=== PATIENT | female | born 1965 | race Caucasian/White ===

== ENCOUNTER → 2021-07-16 | Outpatient (CLI) | payer BC ==
[~2021-07-16] MED LIST: BAMLANIVIMAB (EUA) 700 MG, ETESEVIMAB (EUA) 1,400 MG in SODIUM CHLORIDE 0.9% 50 ML IVPB NR; SODIUM CHLORIDE 0.9% 50 ML IVPB ONE; SODIUM CHLORIDE 0.9% 500 ML 500 ML in EMPTY BAG 1 BAG IV PRN
[2021-07-16 14:14] VITALS: TEMP 98.2
[2021-07-16 14:37] VITALS: BP 115/74; PULSE 78; RESP 20
== END ==
LOC: PROCWHC3 13:08
PROVIDERS: ATTEND Family Medicine
DX: U07.1 COVID-19 (principal); Z88.1 Allergy status to other antibiotic agents; Z88.2 Allergy status to sulfonamides
CPT/HCPCS: 96360; J3490; M0245

== ENCOUNTER 2021-07-17 00:06 | Inpatient (IN) | payer BC ==
[2021-07-17] MEDS ORDERED: ACETAMINOPHEN TAB 500 MG TAB PO PRN (00:24)
[2021-07-17] MEDS ORDERED: ACETAMINOPHEN TAB 500 MG TAB PO STA (00:24)
[2021-07-17] MEDS ORDERED: IBUPROFEN 600 MG TAB PO STA (00:30)
--- NOTE | 2021-07-17 00:32 | ED ---
General Adult HPI - General Chief complaint: Upper Respiratory Infection Stated complaint: FELIX, COVID+ Time Seen by Provider: 07/17/21 00:16 Source: patient, RN notes reviewed Mode of arrival: ambulatory Limitations: no limitations - History of Present Illness Initial comments: 56-year-old female without any significant past medical history presents to the emergency room for chief complaint of shortness of breath. Patient reports that she was tested positive for COVID-19 one week ago on last . States her symptoms started around that day as well. Patient states that she has progressively gotten worse. Today she got the antibodies. She was not vaccinated. Patient states this evening she could not get her oxygen into the 90s so decided to come in. Has not taken Motrin or Tylenol yet.Patient has no other complaints at this time including chest pain, abdominal pain, nausea or vomiting, headache, or visual changes. - Related Data Allergies Allergy/AdvReac Type Severity Reaction Status Date / Time erythromycin base Allergy Unknown Verified 07/17/21 00:12 Sulfa (Sulfonamide Allergy Unknown Verified 07/17/21 00:12 Antibiotics) Review of Systems ROS Statement: Those systems with pertinent positive or pertinent negative responses have been documented in the HPI. ROS Other: All systems not noted in ROS Statement are negative. Past Medical History Past Medical History: No Reported History History of Any Multi-Drug Resistant Organisms: None Reported Past Surgical History: No Surgical Hx Reported Past Psychological History: No Psychological Hx Reported Smoking Status: Never smoker Past Alcohol Use History: Occasional Past Drug Use History: None Reported General Exam Limitations: no limitations General appearance: alert, in no apparent distress Head exam: Present: atraumatic Eye exam: Present: normal appearance, PERRL, EOMI. Absent: scleral icterus, conjunctival injection ENT exam: Present: normal exam, mucous membranes moist Neck exam: Present: normal inspection, full ROM. Absent: tenderness Respiratory exam: Present: normal lung sounds bilaterally. Absent: respiratory distress, wheezes Cardiovascular Exam: Present: regular rate, normal rhythm, normal heart sounds GI/Abdominal exam: Present: soft, normal bowel sounds. Absent: distended, tenderness Neurological exam: Present: alert Course Vital Signs 07/17/21 00:09 Temperature 103 F H Pulse Rate 91 Respiratory 30 H Rate Blood Pressure 147/77 O2 Sat by Pulse 87 L Oximetry EKG Findings - EKG Comments: EKG Findings:: Normal sinus rhythm, ventricular rate 86, W[place] interval 146, QTC 440 Medical Decision Making - Medical Decision Making Patient is febrile with a temperature of 103. Has not taken Motrin and Tylenol. pt given motrin and tylenol. 87% on room air. Started on 4 L nasal cannula wh ich is keeping her around 92-93%. CBC is unremarkable. CMP does show I'll hyponatremia, started on maintenance fluids. Minimal transaminitis noted. D- dimer is normal. Chest x-ray shows pneumonia. Patient did receive antibodies today. Patient will be admitted with pulmonology consultation. [facility] from [facility] did accept the admission. - Lab Data Result diagrams: 07/17/21 00:41 07/17/21 00:41 Lab Results 07/17/21 07/17/21 07/17/21 Range/Units 00:41 00:41 00:41 WBC 7.6 (3.8-10.6) k/uL RBC 3.68 L (3.80-5.40) m/uL Hgb 11.4 (11.4-16.0) gm/dL Hct 33.2 L (34.0-46.0) % MCV 90.5 (80.0-100.0) fL MCH 30.9 (25.0-35.0) pg MCHC 34.2 (31.0-37.0) g/dL RDW 11.5 (11.5-15.5) % Plt Count 204 (150-450) k/uL MPV 7.9 Neutrophils % 81 % Lymphocytes % 12 % Monocytes % 6 % Eosinophils % 0 % Basophils % 0 % Neutrophils # 6.1 (1.3-7.7) k/uL Lymphocytes # 0.9 L (1.0-4.8) k/uL Monocytes # 0.4 (0-1.0) k/uL Eosinophils # 0.0 (0-0.7) k/uL Basophils # 0.0 (0-0.2) k/uL PT 10.4 (9.0-12.0) sec INR 1.0 (<1.2) APTT 23.1 (22.0-30.0) sec D-Dimer 0.29 (<0.60) mg/L FEU Sodium 129 L (137-145) mmol/L Potassium 3.9 (3.5-5.1) mmol/L Chloride 96 L (98-107) mmol/L Carbon Dioxide 23 (22-30) mmol/L Anion Gap 10 mmol/L BUN 11 (7-17) mg/dL Creatinine 0.52 (0.52-1.04) mg/dL Est GFR (CKD-EPI)AfAm >90 (>60 ml/min/1.73 sqM) Est GFR (CKD-EPI)NonAf >90 (>60 ml/min/1.73 sqM) Glucose 142 H (74-99) mg/dL Plasma Lactic Acid Gustavo (0.7-2.0) mmol/L Calcium 7.6 L (8.4-10.2) mg/dL Magnesium 2.0 (1.6-2.3) mg/dL Total Bilirubin 0.4 (0.2-1.3) mg/dL AST 56 H (14-36) U/L ALT 40 H (4-34) U/L Alkaline Phosphatase 74 (38-126) U/L Lactate Dehydrogenase 1003 H (313-618) U/L C-Reactive Protein 7.8 H (<1.0) mg/dL Total Protein 6.5 (6.3-8.2) g/dL Albumin 3.6 (3.5-5.0) g/dL Coronavirus (PCR) (Not Detectd) 07/17/21 07/17/21 Range/Units 00:41 00:41 WBC (3.8-10.6) k/uL RBC (3.80-5.40) m/uL Hgb (11.4-16.0) gm/dL Hct (34.0-46.0) % MCV (80.0-100.0) fL MCH (25.0-35.0) pg MCHC (31.0-37.0) g/dL RDW (11.5-15.5) % Plt Count (150-450) k/uL MPV Neutrophils % % Lymphocytes % % Monocytes % % Eosinophils % % Basophils % % Neutrophils # (1.3-7.7) k/uL Lymphocytes # (1.0-4.8) k/uL Monocytes # (0-1.0) k/uL Eosinophils # (0-0.7) k/uL Basophils # (0-0.2) k/uL PT (9.0-12.0) sec INR (<1.2) APTT (22.0-30.0) sec D-Dimer (<0.60) mg/L FEU Sodium (137-145) mmol/L Potassium (3.5-5.1) mmol/L Chloride (98-107) mmol/L Carbon Dioxide (22-30) mmol/L Anion Gap mmol/L BUN (7-17) mg/dL Creatinine (0.52-1.04) mg/dL Est GFR (CKD-EPI)AfAm (>60 ml/min/1.73 sqM) Est GFR (CKD-EPI)NonAf (>60 ml/min/1.73 sqM) Glucose (74-99) mg/dL Plasma Lactic Acid Gustavo 0.9 (0.7-2.0) mmol/L Calcium (8.4-10.2) mg/dL Magnesium (1.6-2.3) mg/dL Total Bilirubin (0.2-1.3) mg/dL AST (14-36) U/L ALT (4-34) U/L Alkaline Phosphatase (38-126) U/L Lactate Dehydrogenase (313-618) U/L C-Reactive Protein (<1.0) mg/dL Total Protein (6.3-8.2) g/dL Albumin (3.5-5.0) g/dL Coronavirus (PCR) Detected A (Not Detectd) Disposition Clinical Impression: COVID-19, Acute respiratory failure with hypoxia, Pneumonia due to COVID-19 virus, Transaminitis, Hyponatremia Disposition: ADMITTED IP TO THIS [facility] Condition: Serious Is patient prescribed a controlled substance at d/c from ED?: No Referrals: Nonstaff,Physician [REFERRING] - 1-2 days Time of Disposition: 01:49
--- NOTE | 2021-07-17 00:44 | XR ---
EXAMINATION TYPE: XR chest 1V portable DATE OF EXAM: 07/17/2021 COMPARISON: NONE HISTORY: Covid pneumonia TECHNIQUE: Single view FINDINGS: There is some patchy infiltrate in the lower lobes bilaterally. This appears worse on the l eft side. Heart size is normal. Mediastinum is normal. There are no hilar masses. IMPRESSION: Bilateral pneumonia that is worse on the left side. Normal heart.
[2021-07-17 01:09] LABS: Basophils % (A) 0 %; Eosinophils % (A) 0 %; HCT 33.2 % (34.0-46.0); HGB 11.4 gm/dL (11.4-16.0); Lymphocytes # (A) 0.9 k/uL (1.0-4.8); Lymphocytes % (A) 12 %; MCH 30.9 pg (25.0-35.0); MCHC 34.2 g/dL (31.0-37.0); MCV 90.5 fL (80.0-100.0); Mean Platelet Volume 7.9; Monocytes # (A) 0.4 k/uL (0-1.0); Monocytes % (A) 6 %; Neutrophils # (A) 6.1 k/uL (1.3-7.7); Neutrophils % (A) 81 %; Platelet Count 204 k/uL (150-450); RBC 3.68 m/uL (3.80-5.40); RDW 11.5 % (11.5-15.5); WBC 7.6 k/uL (3.8-10.6)
[2021-07-17 01:24] LABS: Partial Thromboplastin Time 23.1 sec (22.0-30.0); Prothrombin Time 10.4 sec (9.0-12.0)
[2021-07-17 01:26] LABS: ALT 40 U/L (4-34); AST 56 U/L (14-36); African American GFR (CKD) >90 (>60 ml/min/1.73 sqM); Albumin 3.6 g/dL (3.5-5.0); Alkaline Phosphatase 74 U/L (38-126); Anion Gap 10 mmol/L; Blood Urea Nitrogen 11 mg/dL (7-17); C Reactive Protein 7.8 mg/dL (<1.0); Calcium 7.6 mg/dL (8.4-10.2); Carbon Dioxide 23 mmol/L (22-30); Chloride 96 mmol/L (98-107); Glucose 142 mg/dL (74-99); LDH 1003 U/L (313-618); Non-African American GFR(CKD) >90 (>60 ml/min/1.73 sqM); Potassium 3.9 mmol/L (3.5-5.1); Sodium 129 mmol/L (137-145); Total Bilirubin 0.4 mg/dL (0.2-1.3); Total Protein 6.5 g/dL (6.3-8.2)
[2021-07-17] MEDS ORDERED: DEXAMETHASONE SOD PHOSPHATE 10 MG/ML 1 ML VIAL IVP STA (01:50)
[2021-07-17] MEDS ORDERED: NALOXONE 0.4 MG/ML 1 ML VIAL IV PRN (01:50)
[2021-07-17] MEDS: SODIUM CHLORIDE 0.9% 1,000 ML IV SCH ×2 (03:51→18:39)
--- NOTE | 2021-07-17 06:41 | P.CNPUL ---
History of Present Illness Consult date: 07/17/21 Requesting physician: Melba Arenas Reason for consult: dyspnea, cough, hypoxemia, pneumonia, abnormal CXR/CT Chief complaint: Shortness of breath, cough, fever. History of present illness: Pulmonary consult dated 07/17/2021. 56-year-old female who presents to the emergency department on July 17, complaining of cough, shortness of breath, and fever. The patient apparently tested positive on July 09 for coronavirus. She's been symptomatically since that time and may be a bit before that. Her symptoms included primarily fever, chills, cough, shortness of breath, general weakness, and myalgias. She is on vaccinated. The patient's currently in the emergency room, room 15. She's on 4 L nasal cannula. She's not receiving any IV fluids. She apparently is no significant past medical history. She does not smoke cigarettes. Apparently her family doctor provided her with a Medrol Dosepak and a Z-Brian. That did not help. Chest x-ray shows diffuse bilateral infiltrates. White count 7.6, hemoglobin 11.4, hematocrit 33.2, platelet count 204,000. D-dimer was normal at 0.29. Sodium 129, potassium 3.9, chlorides 96, CO2 23, anion gap normal, BUN and creatinine normal. LDH 1003. C-reactive protein 7.8. Coronavirus testing here was positive. Chest x-ray shows bilateral mostly lower lobe infiltrates. Review of Systems REVIEW OF SYSTEMS: CONSTITUTIONAL: Fever and chills. NEUROLOGIC: [ Negative.] HEENT: [ Negative.] CARDIAC: [Negative.] PULMONARY: Shortness of breath and cough. GI: [Negative.] : [Negative.] RHEUMATOLOGIC: Myalgias. IMMUNOLOGIC: [ Negative.] ENDOCRINE: [Negative. ] DERMATOLOGIC: [Negative.] Past Medical History Past Medical History: No Reported History History of Any Multi-Drug Resistant Organisms: None Reported Past Surgical History: No Surgical Hx Reported Past Psychological History: No Psychological Hx Reported Smoking Status: Never smoker Past Alcohol Use History: Occasional Past Drug Use History: None Reported Medications and Allergies Allergies Allergy/AdvReac Type Severity Reaction Status Date / Time erythromycin base Allergy Unknown Verified 07/17/21 00:12 Sulfa (Sulfonamide Allergy Unknown Verified 07/17/21 00:12 Antibiotics) Physical Exam Osteopathic Statement: *. No significant issues noted on an osteopathic structural exam other than those noted in the History and Physical/Consult. Vitals: Vital Signs Temp Pulse Resp BP Pulse Ox 07/17/21 03:53 97.5 F L 70 16 107/66 97 07/17/21 00:09 103 F H 91 30 H 147/77 87 L Intake and Output 07/16/21 07/16/21 07/17/21 14:59 22:59 06:59 Other: Weight 82.1 kg No acute distress, oriented 3. No pako respiratory distress, conversational dyspnea, or use of accessory muscles. HEENT examination is grossly unremarkable. Neck supple. Full range of motion. No adenopathy thyromegaly or neck vein distention. Cardiovascular examination reveals regular rhythm rate. S1-S2 normal. No S3 or S4. No discernible murmur noted. Heart rate 70 bpm. Lungs reveal bilateral rhonchi. No wheezes or crackles. Breath sounds equal bilaterally. 4 L saturation is 97%. Abdomen soft bowel sounds are heard. No masses or tenderness. Extremities are intact. No cyanosis clubbing or edema. Skin is without rash or lesion. Neurologic examination is brief but nonfocal. Results - Laboratory Findings CBC and BMP: 07/17/21 00:41 07/17/21 00:41 PT/INR, D-dimer PT 10.4 sec (9.0-12.0) 07/17/21 00:41 INR 1.0 (<1.2) 07/17/21 00:41 D-Dimer 0.29 mg/L FEU (<0.60) 07/17/21 00:41 Abnormal lab findings: Abnormal Labs 07/17/21 07/17/21 07/17/21 00:41 00:41 00:41 RBC 3.68 L Hct 33.2 L Lymphocytes # 0.9 L Sodium 129 L Chloride 96 L Glucose 142 H Calcium 7.6 L AST 56 H ALT 40 H Lactate Dehydrogenase 1003 H C-Reactive Protein 7.8 H Coronavirus (PCR) Detected A - Diagnostic Findings Chest x-ray: image reviewed Assessment and Plan Assessment: Acute hypoxemic respiratory failure secondary to coronavirus associated p neumonia, in a previously healthy, on vaccinated female. Plan: Plan dated 07/17/2021. The patient is a candidate for Decadron 6 mg a day, Lovenox 40 mg subcu daily, vitamin C, vitamin D3, and zinc. She is not a candidate for REM. She is outside the window. She is not sick enough at the current time to receive a monoclonal antibody against interleukin-6. We will continue to follow make recommendations where appropriate. The primary service's should input the vitamins and the Lovenox. Time with Patient: Greater than 30
--- NOTE | 2021-07-17 17:42 | CT ---
EXAMINATION TYPE: CT chest wo con CT DLP: 361 mGycm, Automated exposure control for dose reduction was used. DATE OF EXAM: 07/17/2021 5:07 PM COMPARISON: Chest radiograph from same day. CLINICAL INDICATION:Female, 56 years old with history of Suspected COVID-19 pneumonia; PHH, Shortness of breath, cough, suspect covid-19 pneumonia. TECHNIQUE: Multiple axial images were obtained through the chest without IV contrast. Lack of IV or o ral contrast limits evaluation of solid and hollow organ viscera. FINDINGS: LUNGS/ PLEURA: scattered peripheral groundglass opacities are seen throughout the lungs with more con solidative like changes in the inferior aspect of the lower lobes. No evidence of pneumothorax or pl eural effusion. AIRWAY: Patent and unremarkable.. HEART: Size within normal limits. MEDIASTINUM: No gross evidence of adenopathy. VASCULATURE: No aortic aneurysm. MUSCULOSKELETAL: No acute osseous abnormalities SOFT TISSUES/LYMPH NODES: Unremarkable. LOWER NECK: No significant findings. UPPER ABDOMEN: Hepatic cyst. IMPRESSION: Findings consistent with atypical pneumonia/covid-19 pneumonia.
--- NOTE | 2021-07-17 18:12 | HP ---
HISTORY AND PHYSICAL DATE OF SERVICE: 07/17/2021 CHIEF COMPLAINTS: Shortness of breath and hypoxia and COVID-19. HISTORY OF PRESENT ILLNESS: This 56-year-old woman with a past medical history of GERD, history of DJD, hiatal hernia, being followed by a primary physician elsewhere, was complaining of cough and shortness of breath for the last several days. Patient tested positive by a home test a week ago and the symptoms started at that time also. Because of increasing difficulties, the patient came to [facility] and pulse ox was found to be around 90%. Chest x-ray showed bilateral extensive pneumonia. D-dimer was negative. Inflammatory markers of COVID-19 are elevated. Patient is admitted for further evaluation and treatment. There is no history of any rigors or chills. No history of headache, loss of consciousness , seizures at this time. The patient had hyponatremia. PAST MEDICAL HISTORY: GERD, DJD, history of motion sickness. HOME MEDICATIONS: Progesterone, methylprednisolone, estradiol and Zithromax. ALLERGIES: ERYTHROMYCIN, SULFA. FAMILY HISTORY: History of brain cancer. SOCIAL HISTORY: History of alcohol. REVIEW OF SYSTEMS: ENT: No diminished hearing. No diminished vision. CARDIOVASCULAR SYSTEM: No angina, palpitations. RESPIRATORY SYSTEM: As mentioned earlier. GI: As mentioned earlier. : No dysuria. NERVOUS SYSTEM: No numbness, weakness. ALLERGY/IMMUNOLOGY: No asthma or hay fever. MUSCULOSKELETAL: As mentioned earlier. HEMATOLOGY/ONCOLOGY: No history of anemia. ENDOCRINE: As mentioned earlier. CONSTITUTIONAL: As mentioned earlier. DERMATOLOGY: Negative. RHEUMATOLOGY: Negative. PSYCHIATRY: As mentioned earlier. PHYSICAL EXAMINATION: Patient alert and oriented x3. Pulse is 69, blood pressure 106/51, respiration temperature 96.7, pulse ox 87% on room air. HEENT: Conjunctivae normal. Oral mucosa moist. NECK: No jugular venous distention. No carotid bruit. No lymph node enlargement. CARDIOVASCULAR: S1, S2 muffled. RESPIRATION: Breath sounds diminished at the bases. Breathing efforts are markedly increased. Accessory muscles of respiration are acting. There are a few scattered rhonchi. ABDOMEN: Soft, non-tender. NERVOUS SYSTEM: Higher functions as mentioned earlier. Moves all 4 limbs. No focal motor or sensory deficit. LYMPHATICS: No lymph node palpable in neck, axillae or groin. SKIN: No ulcer, rash, bleeding. JOINTS: No active deforming arthropathy. LABS: WBC 7.6, hemoglobin 11.1, sodium , potassium ASSESSMENT: 1. Acute COVID-19 infection with bilateral acute interstitial pneumonia with acute hypoxic respiratory failure. 2. Hyponatremia. 3. Elevated random glucose. 4. Elevated ferritin and LDH and CRP. 5. Elevated inflammatory markers of COVID-19 infection. 6. Elevated AST, ALT, possibly secondary to hepatitis secondary to COVID-19. 7. History of gastroesophageal reflux disease. 8. History of degenerative joint disease. 9. History of hiatal hernia. 10.History of urinary tract infection. 11.History of left benign breast lumpectomy. 12.Obesity with body mass index of 31.3. 13.FULL CODE. RECOMMENDATIONS AND DISCUSSION: In this 56-year-old woman who presented with multiple complex medical issues, we will monitor the patient closely, continue the current medications, continue symptomatic treatment. Will continue the bronchodilators, usual COVID medications, including Lovenox and zinc and multivitamin supplements, dexamethasone. We will monitor the blood sugars closely. Repeat labs in the morning. Pulmonary has been consulted. I would also recommend Infectious Disease with Dr. Zuñiga to evaluate whether the patient is a candidate for remdesivir. The CT scan of chest also will be ordered D-dimer is negative at this time. Further recommendations to follow. Recommend close followup with primary physician in the outpatient setting. MMODL / IJN: [id number] / OLEKSANDR
[2021-07-17] MEDS ORDERED: ARTIFICIAL TEARS-HYPROMELLOSE DROPS 15 ML BTL BOTH EYES PRN (18:37)
[2021-07-17] MEDS: ENOXAPARIN 40 MG/0.4 ML SYRINGE SQ SCH (18:39)
[2021-07-17] MEDS: ZINC SULFATE 220 MG CAP PO SCH (18:39)
[2021-07-17] MEDS ORDERED: ALBUTEROL HFA INHALER INHALATION SCH (20:00)
[2021-07-17] MEDS: DEXAMETHASONE SOD PHOSPHATE 10 MG/ML 1 ML VIAL IVP SCH (21:46)
[2021-07-18] MEDS: SODIUM CHLORIDE 0.9% 1,000 ML IV SCH ×2 (07:13→17:17)
[2021-07-18] MEDS: CHOLECALCIFEROL 25 MCG (1000 IU) TABLET PO SCH (07:21)
[2021-07-18] MEDS: ASCORBIC ACID 500 MG TAB PO SCH (07:21)
[2021-07-18] MEDS: DEXAMETHASONE SOD PHOSPHATE 10 MG/ML 1 ML VIAL IVP SCH (07:21)
[2021-07-18] MEDS: ZINC SULFATE 220 MG CAP PO SCH (07:21)
[2021-07-18] MEDS: ENOXAPARIN 40 MG/0.4 ML SYRINGE SQ SCH (07:22)
[2021-07-18 07:43] LABS: ALT 62 U/L (4-34); AST 57 U/L (14-36); African American GFR (CKD) >90 (>60 ml/min/1.73 sqM); Albumin 3.6 g/dL (3.5-5.0); Albumin/Globulin Ratio 1.1; Alkaline Phosphatase 79 U/L (38-126); Anion Gap 10 mmol/L; Blood Urea Nitrogen 8 mg/dL (7-17); Calcium 8.5 mg/dL (8.4-10.2); Carbon Dioxide 26 mmol/L (22-30); Chloride 100 mmol/L (98-107); Globulin 3.2 g/dL; Glucose 176 mg/dL (74-99); LDH 962 U/L (313-618); Non-African American GFR(CKD) >90 (>60 ml/min/1.73 sqM); Potassium 4.7 mmol/L (3.5-5.1); Sodium 136 mmol/L (137-145); Total Bilirubin 0.5 mg/dL (0.2-1.3); Total Protein 6.8 g/dL (6.3-8.2)
[2021-07-18 08:04] LABS: C Reactive Protein 6.7 mg/dL (<1.0)
[2021-07-18] MEDS: ALBUTEROL HFA INHALER INHALATION SCH ×4 (08:04→20:11)
[2021-07-18 09:23] LABS: Basophils # (A) 0.01 X 10*3/uL (0.00-0.10); Basophils % (A) 0.1 %; Eosinophils # (A) 0 X 10*3/uL (0.04-0.35); Eosinophils % (A) 0 %; HCT 37.1 % (37.2-46.3); HGB 12.3 g/dL (12.0-15.0); Lymphocytes # (A) 0.81 X 10*3/uL (0.90-5.00); Lymphocytes % (A) 9.9 %; MCH 29.8 pg (27.0-32.0); MCHC 33.2 g/dL (32.0-37.0); MCV 89.8 fL (80.0-97.0); Mean Platelet Volume 10.6 fL (9.5-12.2); Monocytes # (A) 0.44 X 10*3/uL (0.20-1.00); Monocytes % (A) 5.4 %; Neutrophils # (A) 6.85 X 10*3/uL (1.80-7.70); Neutrophils % (A) 83.9 %; Platelet Count 266 X 10*3/uL (140-440); RBC 4.13 X 10*6/uL (4.10-5.20); RDW 11.4 % (11.5-14.5); WBC 8.17 X 10*3/uL (4.50-10.00)
--- NOTE | 2021-07-18 10:14 | P.CONS ---
History of Present Illness - Reason for Consult Consult date: 07/17/21 covid 19 pneumonia Requesting physician: Faustino Horvath - Chief Complaint shortness of breath x few days - History of Present Illness History of present illness : Patient is 56-year-old female presenting to the ER for evaluation of cough shortness of breath and fever in this patient symptom has been going on for more than 10 days and apparently tested positive for COVID-19 on July 09, 2021 patient has been treated with the Zithromax and steroids in the outpatient setting and did not have improvement patient presenting to the ER last evening for evaluation of increasing shortness of breath that been progressively getting worse over the last few days the patient did have a cough which is moderate intensity but not with up any sputum no pleuritic chest pain patient did have nausea and decreased oral intake but no vomiting no abdominal pain did have some diarrhea on presentation to the hospital patient did have a fever of 103 F patient was hypoxic with O2 sats of 87% on room air currently 93% on 4 L nasal cannula patient did have a normal white count with lymphopenia D-dimer was normal liver enzymes are elevated as well as a CRP velez PCR was positive patient did have a chest x-ray bilateral pneumonia that is worse on the left side CT of the chest findings consistent with atypical pneumonia/Covid pneumonia patient was admitted to hospital infe ctious disease was consulted for further management Review of system: CONSTITUTIONAL: Positive for weakness along with the fever. EYES: No complaint. ENT: No complaint. RESPIRATORY as per history of present illness CARDIOVASCULAR: No complaint. GENITOURINARY: No complaint. GASTROINTESTINAL: As per history of present illness. MUSCULOSKELETAL: No complaint. INTEGUMENTARY: No complaint. PSYCHOLOGIC: No complaint. ENDOCRINE: No complaint. NEUROLOGIC: No complaint. Past medical history : Reviewed, documented below Past surgical history : Reviewed, documented below Social history: Reviewed, documented below Medications: Reviewed, as documented below EXAMINATION: Vital sigans= Reviewed and documented below GENERAL DESCRIPTION: Middle-aged female up in the chair, no distress. No ta chypnea or accessory muscle of respiration use. HEENT: Shows Pallor , no scleral icterus. Oral mucous membrane is dry. NECK: Trachea central, no thyromegaly. LUNGS: Unlabored breathing. Coarse breath sounds bilaterally. No wheeze or crackle. HEART: S1, S2, regular rate and rhythm. ABDOMEN: Soft, no tenderness , guarding or rigidity EXTREMITIES: No edema of feet. SKIN: No rash, no masses palpable. NEUROLOGICAL: The patient is awake, alert, oriented x3, mood and affect normal. LABS AND RADIOLOGY: Reviewed results see below Assessment : Patient presented to hospital with acute respiratory failure in this patient did have hypoxemia patient did have a fever the with evidence of multifocal pneumonia secondary to COVID-19 infection in this patient failing outpatient Zithromax and steroid therapy patient is currently out of the therapeutic window for remdesivir per [facility] policy and has no evidence of any secondary bacterial pneumonia Plan: 1-patient to continue with the dexamethasone Lovenox zinc and ascorbic acid 2-no need for systemic antibiotic therapy 3-droplet isolation and respiratory support We will follow on clinical condition and cultures to further adjust medication if needed Thank you for this consultation we will follow the patient along with you Past Medical History Past Medical History: GERD/Reflux, Osteoarthritis (OA) Additional Past Medical History / Comment(s): Covid + per home test on 07/09/21, hiatal hernia, enlarged sigmoid colon, UTI, arthritis bilateral hands. History of Any Multi-Drug Resistant Organisms: None Reported Past Surgical History: Breast Surgery Additional Past Surgical History / Comment(s): L breast benign lumpectomy, colonoscopy Past Anesthesia/Blood Transfusion Reactions: No Reported Reaction, Motion Sickness Additional Past Anesthesia/Blood Transfusion Reaction / Comm: Pt has clausterphobia. Smoking Status: Never smoker - Past Family History Mother Family Medical History: Cancer Additional Family Medical History / Comment(s): Mother from brain cancer Father Family Medical History: Hyperlipidemia, Hypertension, Respiratory Disorder Additional Family Medical History / Comment(s): Father had recent covid. Medications and Allergies Home Medications Medication Instructions Recorded Confirmed Type Azithromycin [Zithromax Z-pack (6 See Taper PO DAILY 07/17/21 07/17/21 History tabs)] Progesterone, Micronized 100 mg PO DAILY 07/17/21 07/17/21 History [Progesterone] estradioL [estradioL (Twice 0.1 mg TRANSDERM SUWE 07/17/21 07/17/21 History Weekly) 0.1 mg Patch] methylPREDNISolone [Medrol Dose See Taper PO DAILY 07/17/21 07/17/21 History Pack] Allergies Allergy/AdvReac Type Severity Reaction Status Date / Time erythromycin base Allergy Unknown Verified 07/17/21 08:30 Sulfa (Sulfonamide Allergy Unknown Verified 07/17/21 08:30 Antibiotics) Physical Exam Vitals: Vital Signs Temp Pulse Pulse Resp BP BP Pulse Ox 07/17/21 14:00 97.5 F L 71 24 122/79 96 07/17/21 09:40 68 96 07/17/21 09:30 64 18 96 07/17/21 09:20 96.7 F L 69 30 H 106/51 94 L 07/17/21 09:16 64 18 94 L 07/17/21 03:53 97.5 F L 70 16 107/66 97 07/17/21 00:09 103 F H 91 30 H 147/77 87 L Intake and Output 07/17/21 07/17/21 07/17/21 06:59 14:59 22:59 Other: Weight 82.1 kg 82.1 kg Results CBC & Chem 7: 07/18/21 06:25 07/18/21 06:25 Labs: Abnormal Lab Results - Last 24 Hours (Table) 07/17/21 07/17/21 07/17/21 Range/Units 00:41 00:41 00:41 RBC 3.68 L (3.80-5.40) m/uL Hct 33.2 L (34.0-46.0) % Lymphocytes # 0.9 L (1.0-4.8) k/uL Sodium 129 L (137-145) mmol/L Chloride 96 L (98-107) mmol/L Glucose 142 H (74-99) mg/dL Calcium 7.6 L (8.4-10.2) mg/dL Ferritin 969.0 H (10.0-291.0) ng/mL AST 56 H (14-36) U/L ALT 40 H (4-34) U/L Lactate Dehydrogenase 1003 H (313-618) U/L C-Reactive Protein 7.8 H (<1.0) mg/dL Coronavirus (PCR) Detected A (Not Detectd)
[2021-07-18 11:02] VITALS: BMI 31.0
[2021-07-18 12:45] LABS: Appearance,Urine Clear (Clear); Bilirubin,Urine Negative (Negative); Blood,Urine Trace (Negative); Color,Urine Yellow; Glucose,Urine (UA) 4+ (Negative); Ketones,Urine Trace (Negative); Leukocyte Esterase,Urine Negative (Negative); Mucus,Urine Rare /hpf; Nitrite,Urine Negative (Negative); PH, Urine 6.5 (5.0-8.0); Protein,Urine Trace (Negative); RBC,Urine 1 /hpf (0-5); Specific Gravity,Urine 1.027 (1.001-1.035); Squamous Epithelial Cell,Urine 1 /hpf (0-4); Urobilinogen,Urine <2.0 mg/dL (<2.0); WBC,Urine 4 /hpf (0-5)
--- NOTE | 2021-07-18 14:50 | P.PN ---
Subjective Progress Note Date: 07/18/21 Principal diagnosis: COVID-19 pneumonia 56-year-old female who presents to the emergency department on July 17, complaining of cough, shortness of breath, and fever. The patient apparently tested positive on July 09 for coronavirus. She's been symptomatically since that time and may be a bit before that. Her symptoms included primarily fever, chills, cough, shortness of breath, general weakness, and myalgias. She is on vaccinated. The patient's currently in the emergency room, room 15. She's on 4 L nasal cannula. She's not receiving any IV fluids. She apparently is no significant past medical history. She does not smoke cigarettes. Apparently her family doctor provided her with a Medrol Dosepak and a Z-Brian. That did not help. Chest x-ray shows diffuse bilateral infiltrates. White count 7.6, hemoglobin 11.4, hematocrit 33.2, platelet count 204,000. D-dimer was normal at 0.29. Sodium 129, potassium 3.9, chlorides 96, CO2 23, anion gap normal, BUN and creatinine normal. LDH 1003. C-reactive protein 7.8. Coronavirus testing here was positive. Chest x-ray shows bilateral mostly lower lobe infiltrates. The patient is seen today 07/18/2021 in follow-up on the regular medical floor. She is currently sitting up in bed. Awake and alert in no acute distress. She still has some shortness of breath with exertion. Some cough and congestion. She is maintaining O2 saturations in the 90s on 4 L/m per nasal cannula. A bit better today compared to yesterday. Continuing to work with the incentive spirometer. She had previously received monoclonal antibody therapy. She is currently on Lovenox, Decadron, vitamin supplements. CAT scan of the chest revealed scattered peripheral groundglass opacities consistent with COVID-19 pneumonia. White count 8.1. Hemoglobin 12.3. Platelet count 266. Leukocyte 0.81. Sodium 136. Potassium 4.7. Creatinine 0.48. Glucose 176. AST 57. ALT 62. LDH 962. C-reactive protein 6.7. Pro-calcitonin 0.03. She is continued on Decadron, Lovenox, vitamin supplements. Objective - Vital Signs Vital signs: Vital Signs Temp 98.0 F 07/18/21 14:00 Pulse 75 07/18/21 14:00 Resp 24 07/18/21 14:00 BP 112/66 07/18/21 14:00 Pulse Ox 94 L 07/18/21 14:00 Intake & Output 07/17/21 07/18/21 07/18/21 18:59 06:59 18:59 Intake Total 350 480 Balance 350 480 Weight 82.1 kg 82.1 kg Intake: Intake, IV Titration 350 Amount Sodium Chloride 0.9% 1, 350 000 ml @ 75 mls/hr IV . [id number] [facility] Rx#:[id number] Oral 480 Other: Voiding Method Toilet Bedside Commode # Voids 2 2 # Bowel Movements 1 1 - Exam GENERAL EXAM: Alert, pleasant 56-year-old female, on 4 L nasal cannula, comfortable in no apparent distress. HEAD: Normocephalic. EYES: Normal reaction of pupils, equal size. NOSE: Clear with pink turbinates. THROAT: No erythema or exudates. NECK: No masses, no JVD. CHEST: No chest wall deformity. LUNGS: Equal air entry with crackles in the bilateral bases. CVS: S1 and S2 normal with no audible murmur, regular rhythm. ABDOMEN: No hepatosplenomegaly, normal bowel sounds, no guarding or rigidity. SPINE: No scoliosis or deformity SKIN: No rashes CENTRAL NERVOUS SYSTEM: No focal deficits, tone is normal in all 4 extremities. EXTREMITIES: There is no peripheral edema. No clubbing, no cyanosis. Periph eral pulses are intact. - Labs CBC & Chem 7: 07/18/21 06:25 07/18/21 06:25 Labs: Abnormal Lab Results - Last 24 Hours (Table) 07/18/21 07/18/21 07/18/21 Range/Units 06:25 06:25 12:01 Hct 37.1 L (37.2-46.3) % RDW 11.4 L (11.5-14.5) % Immature Gran # 0.06 H (0.00-0.04) X 10*3/uL Lymphocytes # 0.81 L (0.90-5.00) X 10*3/uL Eosinophils # 0 L (0.04-0.35) X 10*3/uL Sodium 136 L (137-145) mmol/L Creatinine 0.48 L (0.52-1.04) mg/dL Glucose 176 H (74-99) mg/dL AST 57 H (14-36) U/L ALT 62 H (4-34) U/L Lactate Dehydrogenase 962 H (313-618) U/L C-Reactive Protein 6.7 H (<1.0) mg/dL Urine Protein Trace H (Negative) Urine Glucose (UA) 4+ H (Negative) Urine Ketones Trace H (Negative) Urine Blood Trace H (Negative) Urine Mucus Rare H (None) /hpf Assessment and Plan Assessment: 1 Acute hypoxemic respiratory failure secondary to COVID-19 pneumonia. Not vaccinated. Receiving monoclonal antibodies prior to her admission. Outside the window for Remdesivir. On 4 L nasal cannula. Plan: The patient was seen and evaluated Stable and on 4 L Continue Decadron, Lovenox, vitamin supplements I, the cosigning physician, performed a history & physical examination of the patient. Lungs sounds with crackles in the bilateral bases Maintaining good O2 saturations in the 90s on 3 L/m per nasal cannula. I discussed the assessment and plan of care with my nurse practitioner, Lorena Kyle. I attest to the above note as dictated by her.
[2021-07-18 20:02] LABS: Glucose,Whole Blood 169 mg/dL (75-99)
--- NOTE | 2021-07-18 20:47 | PN ---
PROGRESS NOTE DATE OF SERVICE: 07/18/2021 DATE OF SERVICE: This 56-year-old woman who was admitted with shortness of breath and hypoxia and Covid 19 had acute bilateral interstitial pneumonia. The patient also had elevated inflammatory markers of Covid 19, multiple consultants are following the patient closely. A CT, which was reviewed personally by me, showed evidence of extensive bilateral atypical pneumonia with no evidence of no pneumonia at this time. No chest pain. No palpitations. No fever. PAST MEDICAL HISTORY: Reviewed. REVIEW OF SYSTEMS: Cardiovascular system: No angina. Respiration: As mentioned earlier. GI as mentioned earlier. : No dysuria. Nervous system: No numbness or weakness. CURRENT MEDICATIONS: Reviewed and include: Tylenol, Ventolin, artificial tears, vitamin C, vitamin D. Doses reviewed. PHYSICAL EXAMINATION: Patient is alert and oriented times three. Pulse 82, blood pressure 120/74, respiratory rate 24, temperature 98 degrees, pulse ox 94% on 4 L. HEENT: Conjunctivae normal. Neck: No JVD. Cardiovascular: S1, S2 muffled. Respiration: Breath sounds diminished in the bases. A few scattered rhonchi. Abdomen: Soft, nontender. Legs are no edema. No swelling. Nervous system: No focal deficits. LABS: WBC 8.1, hemoglobin 12.3, sodium 136 UA noted. ASSESSMENT: 1. Acute Covid 19 infection with bilateral acute interstitial pneumonia with acute hypoxic respiratory failure. 2. Hyponatremia. 3. Elevated random glucose. 4. Elevated CRP inflammatory markers of Covid 19 infection. 5. Elevated AST/ALT possibly hepatitis secondary to Covid 19. 6. History of gastroesophageal reflux disease. 7. Degenerative joint disease. 8. History of hiatal hernia. 9. History of urinary tract infection. 10.History of left benign breast lumpectomy. 11.Obesity with body mass index of 31.6. 12.FULL CODE. RECOMMENDATIONS AND DISCUSSION: Continue current medications, management and symptomatic treatment. The patient is still short of breath at this time. We will repeat labs. Otherwise, continue to monitor. Prognosis guarded because of multiple complex medical issues. Continue with dexamethasone. Also recommend monitor the blood sugars. Guarded prognosis. Further recommendations to follow. MMODL / IJN: [id number] / MTDD
[2021-07-18] MEDS: INSULIN ASPART (NovoLOG) 100 UNIT/ML VIAL SQ SCH (21:29)
--- NOTE | 2021-07-18 23:53 | PN ---
PROGRESS NOTE DATE OF SERVICE: 07/18/2021 REASON FOR FOLLOWUP: COVID-19 pneumonia. INTERVAL HISTORY: Patient is afebrile. The patient is breathing slightly comfortably. The patient is down 4 L nasal cannula. The patient denies having any chest pain. No worsening cough or sputum production. No abdominal pain or diarrhea. PHYSICAL EXAMINATION: Blood pressure 123/72 with a pulse of 70, temperature 98.4. She is 94% on 4 L nasal cannula. General description is a middle-aged female up in the chair in no distress. Respiratory system: Unlabored breathing, coarse breath sounds bilaterally. No wheeze. Heart S1, S2. Regular rate and rhythm. Abdomen soft, no tenderness. Extremities: No edema of the feet. LABS: Hemoglobin is 12.8, white count 8.17, creatinine 0.48. IMPRESSION/PLAN: Patient with acute respiratory failure secondary to Covid 19 pneumonia in this patient who did have some clinical improvement. Patient to continue with dexamethasone, Lovenox, zinc and ascorbic acid along with respiratory support. Monitor clinical course closely. MMODL / IJN: [id number] /
[2021-07-19 06:57] LABS: Glucose,Whole Blood 118 mg/dL (75-99)
[2021-07-19] MEDS: INSULIN ASPART (NovoLOG) 100 UNIT/ML VIAL SQ SCH ×4 (07:37→22:17)
[2021-07-19] MEDS: ASCORBIC ACID 500 MG TAB PO SCH (07:46)
[2021-07-19] MEDS: ZINC SULFATE 220 MG CAP PO SCH (07:46)
[2021-07-19] MEDS: CHOLECALCIFEROL 25 MCG (1000 IU) TABLET PO SCH (07:46)
[2021-07-19] MEDS: DEXAMETHASONE SOD PHOSPHATE 10 MG/ML 1 ML VIAL IVP SCH (07:46)
[2021-07-19] MEDS: ENOXAPARIN 40 MG/0.4 ML SYRINGE SQ SCH (07:47)
[2021-07-19] MEDS: SODIUM CHLORIDE 0.9% 1,000 ML IV SCH ×2 (07:47→22:19)
[2021-07-19] MEDS: ALBUTEROL HFA INHALER INHALATION SCH ×4 (09:10→19:31)
[2021-07-19 11:53] LABS: Glucose,Whole Blood 161 mg/dL (75-99)
[2021-07-19 12:23] LABS: Basophils # (A) 0.01 X 10*3/uL (0.00-0.10); Basophils % (A) 0.1 %; Eosinophils # (A) 0.01 X 10*3/uL (0.04-0.35); Eosinophils % (A) 0.1 %; HCT 37.5 % (37.2-46.3); HGB 12.1 g/dL (12.0-15.0); Lymphocytes # (A) 1.78 X 10*3/uL (0.90-5.00); Lymphocytes % (A) 15.3 %; MCH 29.6 pg (27.0-32.0); MCHC 32.3 g/dL (32.0-37.0); MCV 91.7 fL (80.0-97.0); Mean Platelet Volume 10.5 fL (9.5-12.2); Monocytes # (A) 0.93 X 10*3/uL (0.20-1.00); Neutrophils # (A) 8.75 X 10*3/uL (1.80-7.70); Neutrophils % (A) 75.5 %; Platelet Count 333 X 10*3/uL (140-440); RBC 4.09 X 10*6/uL (4.10-5.20); RDW 11.6 % (11.5-14.5)
[2021-07-19 13:05] LABS: African American GFR (CKD) 120.5 (60.0-200.0); Anion Gap 16.2 mmol/L (10.00-18.00); BUN/Creat Ratio 17.13 Ratio (12.00-20.00); Blood Urea Nitrogen 9.3 mg/dL (9.0-27.0); Calcium 8.8 mg/dL (8.7-10.3); Potassium 4.8 mmol/L (3.5-5.5)
[2021-07-19] MEDS ORDERED: SODIUM CHLORIDE 0.65% NASAL SPRAY 44 ML BTL NASAL PRN (14:33)
[2021-07-19] MEDS ORDERED: PANTOPRAZOLE 40 MG/10 ML VIAL IVP SCH (16:30)
[2021-07-19 16:40] LABS: Glucose,Whole Blood 149 mg/dL (75-99)
--- NOTE | 2021-07-19 16:49 | P.PN ---
Subjective Progress Note Date: 07/19/21 Principal diagnosis: Dyspnea, cough, hypoxia 56-year-old female who presents to the emergency department on July 17, complaining of cough, shortness of breath, and fever. The patient apparently tested positive on July 09 for coronavirus. She's been symptomatically since that time and may be a bit before that. Her symptoms included primarily fever, chills, cough, shortness of breath, general weakness, and myalgias. She is on vaccinated. The patient's currently in the emergency room, room 15. She's on 4 L nasal cannula. She's not receiving any IV fluids. She apparently is no significant past medical history. She does not smoke cigarettes. Apparently her family doctor provided her with a Medrol Dosepak and a Z-Brian. That did not help. Chest x-ray shows diffuse bilateral infiltrates. White count 7.6, hemoglobin 11.4, hematocrit 33.2, platelet count 204,000. D-dimer was normal at 0.29. Sodium 129, potassium 3.9, chlorides 96, CO2 23, anion gap normal, BUN and creatinine normal. LDH 1003. C-reactive protein 7.8. Coronavirus testing here was positive. Chest x-ray shows bilateral mostly lower lobe infiltrates. The patient is seen today 07/18/2021 in follow-up on the regular medical floor. She is currently sitting up in bed. Awake and alert in no acute distress. She still has some shortness of breath with exertion. Some cough and congestion. She is maintaining O2 saturations in the 90s on 4 L/m per nasal cannula. A bit better today compared to yesterday. Continuing to work with the incentive spirometer. She had previously received monoclonal antibody therapy. She is currently on Lovenox, Decadron, vitamin supplements. CAT scan of the chest revealed scattered peripheral groundglass opacities consistent with COVID-19 pneumonia. White count 8.1. Hemoglobin 12.3. Platelet count 266. Leukocyte 0.81. Sodium 136. Potassium 4.7. Creatinine 0.48. Glucose 176. AST 57. ALT 62. LDH 962. C-reactive protein 6.7. Pro-calcitonin 0.03. She is continued on Decadron, Lovenox, vitamin supplements. On 07/19/2001 patient seen in follow-up on medical surgical floor, she is awake and alert, in no acute distress, she is currently on 4 L of oxygen and pulse ox was 90%, lung sounds reveal minimal crackles, overall patient states she is feeling better, she has received monoclonal antibodies in the emergency department. However she was not a candidate for Remdesivir due to the length of symptoms. She has a mild cough, no complaints of chest discomfort, fever or chills overnight, hemodynamically stable. CT chest without on 07/17/2021 showed findings consistent with atypical pneumonia COVID-19 pneumonia with scattered peripheral groundglass opacities throughout the lungs with more consolidative changes in the inferior aspect of the lower lobes. Patient remains on Decadron 6 mg daily, Lovenox, she is on IV fluids at 75 ML per hour and COVID-19 multivitamins. Objective - Vital Signs Vital signs: Vital Signs Temp 98.3 F 07/19/21 14:00 Pulse 73 07/19/21 14:00 Resp 22 07/19/21 14:00 BP 116/67 07/19/21 14:00 Pulse Ox 96 07/19/21 14:00 Intake & Output 07/18/21 07/19/21 07/19/21 18:59 06:59 18:59 Output Total 2 Balance -2 Weight 82.1 kg Output: Urine/Stool Mix 2 Other: Voiding Method Toilet Toilet Bedside Commode Bedside Commode # Voids 3 5 # Bowel Movements 1 - Exam GENERAL EXAM: Alert, pleasant, 48-year-old white female, on 4 L of oxygen a pulse ox of 96% comfortable in no apparent distress. HEAD: Normocephalic/atraumatic. EYES: Normal reaction of pupils, equal size. Conjunctiva pink, sclera white. NOSE: Clear with pink turbinates. THROAT: No erythema or exudates. NECK: No masses, no JVD, no thyroid enlargement, no adenopathy. CHEST: No chest wall deformity. Symmetrical expansion. LUNGS: Equal air entry with bilateral crackles CVS: Regular rate and rhythm, normal S1 and S2, no gallops, no murmurs, no rubs ABDOMEN: Soft, nontender. No hepatosplenomegaly, normal bowel sounds, no guarding or rigidity. EXTREMITIES: No clubbing, no edema, no cyanosis, 2+ pulses and upper and lower extremities. MUSCULOSKELETAL: Muscle strength and tone normal. SPINE: No scoliosis or deformity SKIN: No rashes CENTRAL NERVOUS SYSTEM: Alert and oriented -3. No focal deficits, tone is normal in all 4 extremities. PSYCHIATRIC: Alert and oriented -3. Appropriate affect. Intact judgment and insight. - Labs CBC & Chem 7: 07/19/21 05:44 07/19/21 05:44 Labs: Abnormal Lab Results - Last 24 Hours (Table) 07/18/21 07/18/21 07/19/21 Range/Units 06:25 20:00 05:44 WBC 11.60 H (4.50-10.00) X 10*3/uL RBC 4.09 L (4.10-5.20) X 10*6/uL Immature Gran # 0.12 H (0.00-0.04) X 10*3/uL Neutrophils # 8.75 H (1.80-7.70) X 10*3/uL Eosinophils # 0.01 L (0.04-0.35) X 10*3/uL Creatinine (0.6-1.5) mg/dL Glucose (70-110) mg/dL POC Glucose (mg/dL) 169 H (75-99) mg/dL Ferritin 1182.0 H (10.0-291.0) ng/mL 07/19/21 07/19/21 07/19/21 Range/Units 05:44 06:56 11:52 WBC (4.50-10.00) X 10*3/uL RBC (4.10-5.20) X 10*6/uL Immature Gran # (0.00-0.04) X 10*3/uL Neutrophils # (1.80-7.70) X 10*3/uL Eosinophils # (0.04-0.35) X 10*3/uL Creatinine 0.5 L (0.6-1.5) mg/dL Glucose 113 H (70-110) mg/dL POC Glucose (mg/dL) 118 H 161 H (75-99) mg/dL Ferritin (10.0-291.0) ng/mL 07/19/21 Range/Units 16:38 WBC (4.50-10.00) X 10*3/uL RBC (4.10-5.20) X 10*6/uL Immature Gran # (0.00-0.04) X 10*3/uL Neutrophils # (1.80-7.70) X 10*3/uL Eosinophils # (0.04-0.35) X 10*3/uL Creatinine (0.6-1.5) mg/dL Glucose (70-110) mg/dL POC Glucose (mg/dL) 149 H (75-99) mg/dL Ferritin (10.0-291.0) ng/mL Assessment and Plan Plan: Assessment: #1. Acute hypoxic respiratory failure related to acute COVID-19 pneumonia. Non-vaccinated adult. Status post monoclonal antibody infusion prior to admission, outside the window for Remdesivir due to length of symptoms. She remains on 4 L of oxygen #2. Hyponatremia likely related to dehydration, improved with IV hydration #3. Elevated inflammatory markers related to the above #4. History of left benign breast lumpectomy #5. Degenerative joint disease #6. GERD Plan: Continue current medical treatment Continue Decadron, Lovenox Patient has been stable she remains on 4 L of oxygen Continue weaning FiO2 Obtain follow-up d-dimer an inflammatory markers tomorrow Increase activity as tolerated I performed a history & physical examination of the patient and discussed their management with my nurse practitioner, Jalyn Ceja. I reviewed the nurse practitioner's note and agree with the documented findings and plan of care. Lung sounds are positive for diminished breath sounds throughout the lung fiel ds. The findings and the impression was discussed with the patient. I attest to the documentation by the nurse practitioner. Time with Patient: Less than 30
[2021-07-19] MEDS ORDERED: ESTRADIOL TRANSDERM SCH (17:45)
[2021-07-19] MEDS ORDERED: PROGESTERONE MICRONIZED 100 MG PO SCH (18:00)
[2021-07-19] MEDS ORDERED: ESTRADIOL 0.1 MG TRANSDERM SCH (18:00)
[2021-07-19] MEDS ORDERED: [UNRECOGNIZED DRUG - OTHER] TRANSDERM SCH (18:00)
--- NOTE | 2021-07-19 18:09 | PN ---
PROGRESS NOTE DATE OF SERVICE: 07/19/2021 REASON FOR FOLLOWUP: COVID-19 pneumonia. INTERVAL HISTORY: The patient is afebrile. The patient is breathing slightly comfortably. The patient denies having any chest pain. No worsening cough or sputum production. No nausea, no vomiting. No abdominal pain or diarrhea. PHYSICAL EXAMINATION: Her blood pressure is 116/67, pulse of 73, temperature 98.3. She is 96% on 4 L nasal cannula. General description is a middle-aged female up in the chair in no distress. Respiratory system: Unlabored breathing, decreased intensity of breath sounds. No wheeze. Heart S1, S2. Regular rate and rhythm. Abdomen soft, no tenderness. LABS: Hemoglobin is 12.1, white count of 11.6, creatinine 0.5. IMPRESSION/PLAN: Patient admitted to the hospital with acute respiratory failure secondary to COVID-19 pneumonia in this patient have minimal clinical improvement. Patient to continue with dexamethasone, Lovenox, zinc and ascorbic acid. Slowly wean off her oxygen. Continue supportive care. MMODL / IJN: [id number] /
--- NOTE | 2021-07-19 18:54 | PN ---
PROGRESS NOTE DATE OF SERVICE: 07/19/2021 This 56-year-old woman who was admitted with acute COVID-19 infection also had some hyponatremia. Patient has features of acute respiratory failure. The blood sugars have also been elevated. The chest CT which was reviewed personally by me showed extensive bilateral interstitial pneumonia and no evidence of any acute pulmonary embolism. Patient closely monitored. Multiple consultants are following the patient closely. PAST MEDICAL HISTORY: Reviewed. REVIEW OF SYSTEMS: Cardiovascular system: No angina. Respiratory: As mentioned earlier. GI: As mentioned earlier. : No dysuria. Nervous system: No numbness or weakness. MEDICATIONS: Reviewed include Tylenol, Ventolin, ( ), vitamin D2, Lovenox, NovoLog, doses reviewed. PHYSICAL EXAMINATION: Alert and oriented x3. Pulse 73, blood pressure 116/67, respiration 22, temperature 98.2, pulse ox 93% on 4 L. HEENT: Conjunctivae normal. Oral mucosa moist. NECK: No jugular venous distention. No lymph node enlargement. CARDIOVASCULAR: S1, S2, muffled. No S3, no S4, RESPIRATORY: Diminished breath sounds at the bases. A few scattered rhonchi and crackles. ABDOMEN: Soft, nontender. LEGS: No edema, no swelling. NERVOUS SYSTEM: No focal deficits. LABS: WBC 11.2, hemoglobin 12. Accu-Cheks noted. ASSESSMENT: 1. Acute COVID-19 infection with acute bilateral interstitial pneumonia with acute hypoxic respiratory failure. 2. Hyponatremia. 3. Elevated random glucose. 4. Elevated CRP and other inflammatory markers of COVID-19 infection. 5. Elevated AST ALT possibly hepatitis secondary to COVID-19. 6. Gastroesophageal reflux disease. 7. Degenerative joint disease. 8. History of hiatal hernia. 9. History of urinary tract infection. 10.History of left benign left breast lumpectomy. 11.Obesity with body mass index of 31.6. 12.FULL CODE. RECOMMENDATIONS AND DISCUSSION: Recommend to continue current medications. Continue with bronchodilators. Continue with Lovenox. Continue rest of medications. Closely follow with Pulmonary. Prognosis guarded because of multiple complex medical issues. Patient might need home O2 evaluate once the patient is stable. Guarded prognosis. MMODL / IJN: [id number] /
[2021-07-19 21:23] LABS: Glucose,Whole Blood 147 mg/dL (75-99)
[2021-07-19] MEDS: PROGESTERONE MICRONIZED 100 MG PO SCH (22:18)
[2021-07-20 07:00] LABS: Glucose,Whole Blood 102 mg/dL (75-99)
[2021-07-20] MEDS: INSULIN ASPART (NovoLOG) 100 UNIT/ML VIAL SQ SCH ×5 (07:04→21:05)
[2021-07-20] MEDS: ZINC SULFATE 220 MG CAP PO SCH (07:29)
[2021-07-20] MEDS: CHOLECALCIFEROL 25 MCG (1000 IU) TABLET PO SCH (07:29)
[2021-07-20] MEDS: ENOXAPARIN 40 MG/0.4 ML SYRINGE SQ SCH (07:30)
[2021-07-20] MEDS: ASCORBIC ACID 500 MG TAB PO SCH (07:30)
[2021-07-20] MEDS: PANTOPRAZOLE 40 MG TABLET PO SCH ×2 (07:30→16:58)
[2021-07-20] MEDS: DEXAMETHASONE SOD PHOSPHATE 10 MG/ML 1 ML VIAL IVP SCH (07:30)
[2021-07-20] MEDS: ALBUTEROL HFA INHALER INHALATION SCH ×4 (07:43→21:00)
[2021-07-20] MEDS: SODIUM CHLORIDE 0.9% 1,000 ML IV SCH ×2 (09:51→21:10)
[2021-07-20 10:07] LABS: C Reactive Protein 1.4 mg/dL (0.00-0.80)
[2021-07-20 11:12] LABS: Glucose,Whole Blood 241 mg/dL (75-99)
--- NOTE | 2021-07-20 14:57 | P.PN ---
Subjective Progress Note Date: 07/20/21 07/20/2021 Patient evaluated today sitting up in a chair. She was weaned to 2 L oxygen via nasal cannula today and saturations are between 92-93%. She is afebrile, heart rate 99, blood pressure 119/62. Repeat d-dimer today is 0.47, LDH 353, CRP 1.4 which are improving. sugars in the 200s. Patient is hopeful for discharge possibly tomorrow or Tuesday. She is just arranging with family in order to have her home ready for her. Patient is able to ambulate short distances, there are no complaints of chest pain. She does have some shortness of breath with ambulation. She is continuing to use her IS and she is proning and positioning herself in bed. ROS Constitutional: Denied any fatigue denied any fever. Cardio vascular: denied any chest pain, palpitations Gastrointestinal: denied any nausea vomiting Pulmonary: Reports intermittent cough, reports shortness of breath with exertion Neurologic: denied any new focal deficits All inpatient medications were reviewed and appropriate changes in these medications as dictated in the interval history and assessment and plan. PHYSICAL EXAMINATION: GENERAL: The patient is alert and oriented x3, not in any acute distress. Well developed, well nourished. Obese HEENT: Pupils are round and equally reacting to light. EOMI. No scleral icterus. No conjunctival pallor. Normocephalic, atraumatic. No pharyngeal erythema. No thyromegaly. CARDIOVASCULAR: S1 and S2 present. No murmurs, rubs, or gallops. PULMONARY: Chest is clear to auscultation, no wheezing or crackles. ABDOMEN: Soft, nontender, nondistended, normoactive bowel sounds. No palpable organomegaly. MUSCULOSKELETAL: No joint swelling or deformity. EXTREMITIES: No cyanosis, clubbing, or pedal edema. NEUROLOGICAL: Gross neurological examination did not reveal any focal deficits. SKIN: No rashes. Assessment and plan Assessment Acute COVID-19 infection with acute bilateral pneumonia with acute respiratory failure Hyponatremia secondary to dehydration, improving Hyperglycemia Elevated inflammatory markers related to COVID-19 infection Elevated liver enzymes secondary to some inflammation 19 infection GERD History of a benign left breast lumpectomy degenerative joint disease Obesity GI prophylaxis: Protonix DVT prophylaxis: Lovenox FULL CODE Plan Continue to wean oxygen as tolerated Home Oxygen test tomorrow Continue decadron, lovenox, vitamins Continue bronchodilators Continue all other supportive care Adjust insulin Possible DC home tomorrow if cleared by pulmonary Objective - Vital Signs Vital signs: Vital Signs Temp 98.3 F 07/20/21 14:00 Pulse 99 07/20/21 14:00 Resp 17 07/20/21 14:00 BP 119/62 07/20/21 14:00 Pulse Ox 92 L 07/20/21 14:00 Intake & Output 07/19/21 07/20/21 07/20/21 18:59 06:59 18:59 Other: Voiding Method Toilet Bedside Commode # Voids 4 4 # Bowel Movements 1 0 - Labs CBC & Chem 7: 07/19/21 05:44 07/19/21 05:44 Labs: Abnormal Lab Results - Last 24 Hours (Table) 07/19/21 07/19/21 07/20/21 Range/Units 16:38 21:20 05:48 POC Glucose (mg/dL) 149 H 147 H (75-99) mg/dL Lactate Dehydrogenase 353 H (120-246) U/L C-Reactive Protein 1.40 H (0.00-0.80) mg/dL 07/20/21 07/20/21 Range/Units 06:58 11:11 POC Glucose (mg/dL) 102 H 241 H (75-99) mg/dL Lactate Dehydrogenase (120-246) U/L C-Reactive Protein (0.00-0.80) mg/dL
--- NOTE | 2021-07-20 16:13 | P.PN ---
Subjective Progress Note Date: 07/20/21 Principal diagnosis: Dyspnea, cough, hypoxia 56-year-old female who presents to the emergency department on July 17, complaining of cough, shortness of breath, and fever. The patient apparently tested positive on July 09 for coronavirus. She's been symptomatically since that time and may be a bit before that. Her symptoms included primarily fever, chills, cough, shortness of breath, general weakness, and myalgias. She is on vaccinated. The patient's currently in the emergency room, room 15. She's on 4 L nasal cannula. She's not receiving any IV fluids. She apparently is no significant past medical history. She does not smoke cigarettes. Apparently her family doctor provided her with a Medrol Dosepak and a Z-Brian. That did not help. Chest x-ray shows diffuse bilateral infiltrates. White count 7.6, hemoglobin 11.4, hematocrit 33.2, platelet count 204,000. D-dimer was normal at 0.29. Sodium 129, potassium 3.9, chlorides 96, CO2 23, anion gap normal, BUN and creatinine normal. LDH 1003. C-reactive protein 7.8. Coronavirus testing here was positive. Chest x-ray shows bilateral mostly lower lobe infiltrates. The patient is seen today 07/18/2021 in follow-up on the regular medical floor. She is currently sitting up in bed. Awake and alert in no acute distress. She still has some shortness of breath with exertion. Some cough and congestion. She is maintaining O2 saturations in the 90s on 4 L/m per nasal cannula. A bit better today compared to yesterday. Continuing to work with the incentive spirometer. She had previously received monoclonal antibody therapy. She is currently on Lovenox, Decadron, vitamin supplements. CAT scan of the chest revealed scattered peripheral groundglass opacities consistent with COVID-19 pneumonia. White count 8.1. Hemoglobin 12.3. Platelet count 266. Leukocyte 0.81. Sodium 136. Potassium 4.7. Creatinine 0.48. Glucose 176. AST 57. ALT 62. LDH 962. C-reactive protein 6.7. Pro-calcitonin 0.03. She is continued on Decadron, Lovenox, vitamin supplements. On 07/19/2001 patient seen in follow-up on medical surgical floor, she is awake and alert, in no acute distress, she is currently on 4 L of oxygen and pulse ox was 90%, lung sounds reveal minimal crackles, overall patient states she is feeling better, she has received monoclonal antibodies in the emergency department. However she was not a candidate for Remdesivir due to the length of symptoms. She has a mild cough, no complaints of chest discomfort, fever or chills overnight, hemodynamically stable. CT chest without on 07/17/2021 showed findings consistent with atypical pneumonia COVID-19 pneumonia with scattered peripheral groundglass opacities throughout the lungs with more consolidative changes in the inferior aspect of the lower lobes. Patient remains on Decadron 6 mg daily, Lovenox, she is on IV fluids at 75 ML per hour and COVID-19 multivitamins. On 07/20/2021 patient seen in follow-up on medical surgical floor, FiO2 is down to 2 L, earlier today she was satting 92% on 2 L. Doing well, no acute events overnight, no fever or chills, patient continues on Decadron 6 mg daily, she is on prophylactic Lovenox, she is on multivitamins. She is up in chair, in no acute distress, she is tolerating oral intake. Today's labs have been reviewed, her d-dimer is normal at 0.47, inflammatory markers are improving, and LDH is down to 353, and CRP is 1.4. Pro-calcitonin level was negative 2. No acute events overnight, continue weaning FiO2 Objective - Vital Signs Vital signs: Vital Signs Temp 98.3 F 07/20/21 14:00 Pulse 99 07/20/21 14:00 Resp 17 07/20/21 14:00 BP 119/62 07/20/21 14:00 Pulse Ox 92 L 07/20/21 14:00 Intake & Output 07/19/21 07/20/21 07/20/21 18:59 06:59 18:59 Other: Voiding Method Toilet Bedside Commode # Voids 4 4 # Bowel Movements 1 0 - Exam GENERAL EXAM: Alert, pleasant, 48-year-old white female, on 2 L of oxygen a p ulse ox of 96% comfortable in no apparent distress. HEAD: Normocephalic/atraumatic. EYES: Normal reaction of pupils, equal size. Conjunctiva pink, sclera white. NOSE: Clear with pink turbinates. THROAT: No erythema or exudates. NECK: No masses, no JVD, no thyroid enlargement, no adenopathy. CHEST: No chest wall deformity. Symmetrical expansion. LUNGS: Equal air entry with bilateral crackles CVS: Regular rate and rhythm, normal S1 and S2, no gallops, no murmurs, no rubs ABDOMEN: Soft, nontender. No hepatosplenomegaly, normal bowel sounds, no guarding or rigidity. EXTREMITIES: No clubbing, no edema, no cyanosis, 2+ pulses and upper and lower extremities. MUSCULOSKELETAL: Muscle strength and tone normal. SPINE: No scoliosis or deformity SKIN: No rashes CENTRAL NERVOUS SYSTEM: Alert and oriented -3. No focal deficits, tone is normal in all 4 extremities. PSYCHIATRIC: Alert and oriented -3. Appropriate affect. Intact judgment and insight. - Labs CBC & Chem 7: 07/19/21 05:44 07/19/21 05:44 Labs: Abnormal Lab Results - Last 24 Hours (Table) 07/19/21 07/19/21 07/20/21 Range/Units 16:38 21:20 05:48 POC Glucose (mg/dL) 149 H 147 H (75-99) mg/dL Lactate Dehydrogenase 353 H (120-246) U/L C-Reactive Protein 1.40 H (0.00-0.80) mg/dL 07/20/21 07/20/21 Range/Units 06:58 11:11 POC Glucose (mg/dL) 102 H 241 H (75-99) mg/dL Lactate Dehydrogenase (120-246) U/L C-Reactive Protein (0.00-0.80) mg/dL Assessment and Plan Plan: Assessment: #1. Acute hypoxic respiratory failure related to acute COVID-19 pneumonia. Non-vaccinated adult. Status post monoclonal antibody infusion prior to admission, outside the window for Remdesivir due to length of symptoms. She is down to 2 L of oxygen #2. Hyponatremia likely related to dehydration, improved with IV hydration #3. Elevated inflammatory markers related to the above #4. History of left benign breast lumpectomy #5. Degenerative joint disease #6. GERD Plan: FiO2 is currently down to 2 L Mildly dyspneic, but no respiratory distress No fever or chills, vital signs are stable Continue current medical treatment Continue Decadron, Lovenox Patient has been stable she remains on 4 L of oxygen Continue weaning FiO2 Inflammatory markers are improving Increase activity as tolerated Possible discharge home in the next 24 hours if her condition remains stable continues to improve I performed a history & physical examination of the patient and discussed their management with my nurse practitioner, Jalyn Ceja. I reviewed the nurse practitioner's note and agree with the documented findings and plan of care. Lung sounds are positive for diminished breath sounds throughout the lung rosado. The findings and the impression was discussed with the patient. I attest to the documentation by the nurse practitioner. Time with Patient: Less than 30
[2021-07-20 16:56] LABS: Glucose,Whole Blood 144 mg/dL (75-99)
[2021-07-20 20:25] LABS: Glucose,Whole Blood 179 mg/dL (75-99)
[2021-07-20] MEDS: PROGESTERONE MICRONIZED 100 MG PO SCH (21:09)
--- NOTE | 2021-07-20 23:25 | PN ---
PROGRESS NOTE DATE OF SERVICE: 07/20/2021 REASON FOR FOLLOWUP: COVID-19 pneumonia. INTERVAL HISTORY: The patient is afebrile. The patient is breathing comfortably. She is down to 2 L nasal cannula. No chest pain, shortness of breath or cough. No abdominal pain or diarrhea. PHYSICAL EXAMINATION: Blood pressure is 111/69, pulse of 69, temperature of 98. She is 93% on 2 L nasal cannula. General description is a middle-aged female lying in bed in no distress. Respiratory system: Unlabored breathing, decreased intensity of breath sounds. No wheeze. Heart S1, S2. Regular rate and rhythm. Abdomen soft, no tenderness. LAB: D-dimer is 0.47. CRP is 1.40. DIAGNOSTIC IMPRESSION AND PLAN: Patient with acute COVID-19 pneumonia in this patient who seems to have shown overall clinical improvement slowly. Patient to continue with dexamethasone and Lovenox, zinc and ascorbic acid, and slowly wean off her oxygen. Continue with supportive care. MMODL / IJN: [id number] /
[2021-07-21 06:57] LABS: Glucose,Whole Blood 89 mg/dL (75-99)
[2021-07-21] MEDS: INSULIN ASPART (NovoLOG) 100 UNIT/ML VIAL SQ SCH ×4 (07:27→12:19)
[2021-07-21] MEDS: CHOLECALCIFEROL 25 MCG (1000 IU) TABLET PO SCH (07:28)
[2021-07-21] MEDS: ZINC SULFATE 220 MG CAP PO SCH (07:28)
[2021-07-21] MEDS: DEXAMETHASONE SOD PHOSPHATE 10 MG/ML 1 ML VIAL IVP SCH (07:28)
[2021-07-21] MEDS: PANTOPRAZOLE 40 MG TABLET PO SCH (07:29)
[2021-07-21] MEDS: ASCORBIC ACID 500 MG TAB PO SCH (07:29)
[2021-07-21] MEDS: ENOXAPARIN 40 MG/0.4 ML SYRINGE SQ SCH (07:29)
[2021-07-21] MEDS: ALBUTEROL HFA INHALER INHALATION SCH ×3 (08:17→16:10)
[2021-07-21 10:23] VITALS: RESP 16
[2021-07-21 11:34] LABS: Glucose,Whole Blood 124 mg/dL (75-99)
[2021-07-21] MEDS ORDERED: BENZOCAINE/MENTHOL LOZENG 1 EACH LOZENGE MUCOUS MEM PRN (13:19)
--- NOTE | 2021-07-21 13:39 | P.DS ---
Providers Date of admission: 07/17/21 01:50 Attending physician: Melba Arenas Consults: 07/17/21 01:51 Consult Physician Routine Consulting Provider: Lewis Thornton Consult Reason/Comments: covid +, acute hypoxic respiratory failure Do you want consulting provider notified?: Yes 07/17/21 16:38 Consult Physician Routine Consulting Provider: Vickie Zuñiga Consult Reason/Comments: covid Do you want consulting provider notified?: Yes Primary care physician: Taco Anguiano MD Hospital Course: Final Diagnosis Acute COVID-19 infection with acute bilateral pneumonia with acute respiratory failure Hyponatremia secondary to dehydration, improving Hyperglycemia Elevated inflammatory markers related to COVID-19 infection Elevated liver enzymes secondary to some inflammation 19 infection GERD History of a benign left breast lumpectomy degenerative joint disease Obesity Discharge Disposition Patient is cleared medically for discharged on home oxygen. She was evaluated and cleared today by pulmonary services. Hospital Course This is a pleasant 56 year old female who presented to the hospital with complaints of shortness of breath, she tested positive for COVID-19 on July 10. Patient came to the hospital where she received antibodies in the [facility]. She is not vaccinated. Patient could not get her oxygen into the 90s at home so she came in. She is a past medical history significant for GERD reflux, osteoarthritis, arthritis in both hands, hiatal hernia, left breast benign lumpectomy, claustrophobia, never smoker occasional drinker. Patient is obese. Labs on admission showed a white count of 7.6, d-dimer 0.29, sodium 129, potassium 3.9, chloride 96, glucose 140s, ferritin 969, AST 56, ALT 40, LDH 1003, CRP 7.8. Patient initially required 4 L nasal cannula however she was able to be weaned down to 2 L and has had an oxygen saturation of 97%. She is able to ambulate around her room without difficulty, blood pressure 119/74, sinus rhythm 78, afebrile. She was gently hydrated. She did have a chest CT which showed findings consistent with atypical pneumonia/COVID-19 pneumonia. Patient was consult to pulmonary services, ID services. Patient was treated with IV Decadron, Lovenox, zinc and vitamins. 07/21/2021 Patient cleared medically for discharge by pulmonary services. She'll discharge on home oxygen at 2 L nasal cannula. Patient is able to ambulate around room she's been using her incentive spirometry. We will repeat labs outpatient, most recent d-dimer 0.47, inflammatory markers show improvement at 353 for LDH and CRP 1.4. Lungs are clearing, nonproductive congested cough is improving. S1-S2 auscultated, abdomen soft nontender positive bowel sounds. Focal neurological exam is negative. Patient states that her mouth feels dry, we did give her some lozenges in the hospital she can continue these outpatient. Patient will continue all other home medications. Please see medication reconciliation for list of current medications. Thank you for allowing us to participate in the care of this patient. Patient Condition at Discharge: Fair Plan - Discharge Summary Discharge Rx Participant: No New Discharge Prescriptions: New Artificial Tears-Hypromellose [Artificial Tear Drops] 1 drops BOTH EYES TID PRN ml PRN Reason: Dry Eye(S) Dexamethasone [Decadron] 6 mg PO DAILY #5 tablet Ascorbic Acid [Vitamin C] 500 mg PO DAILY #30 tab Cholecalciferol [Vitamin D3 (25 Mcg = 1000 Iu)] 25 mcg PO DAILY #30 tablet Sodium Chloride 0.65% Nasal [Deep Sea (Saline)] 2 spray NASAL QID PRN ml PRN Reason: Congestion Zinc Sulfate [Orazinc] 220 mg PO DAILY #30 cap Acetaminophen Tab [Tylenol] 1,000 mg PO Q6HR PRN tab PRN Reason: Fever>101 Albuterol Inhaler [Ventolin Hfa Inhaler] 2 puff INHALATION RT-QID PRN #1 each PRN Reason: Shortness Of Breath Or Wheezing Continue estradioL [estradioL (Twice Weekly) 0.1 mg Patch] 0.1 mg TRANSDERM SUWE Progesterone, Micronized [Progesterone] 100 mg PO DAILY Discontinued Azithromycin [Zithromax Z-pack (6 tabs)] See Taper PO DAILY methylPREDNISolone [Medrol Dose Pack] See Taper PO DAILY Discharge Medication List Progesterone, Micronized [Progesterone] 100 mg PO DAILY 07/17/21 [History] estradioL [estradioL (Twice Weekly) 0.1 mg Patch] 0.1 mg TRANSDERM SUWE 07/17/21 [History] Acetaminophen Tab [Tylenol] 1,000 mg PO Q6HR PRN tab 07/21/21 [Rx] Albuterol Inhaler [Ventolin Hfa Inhaler] 2 puff INHALATION RT-QID PRN #1 each 12/21/21 [Rx] Artificial Tears-Hypromellose [Artificial Tear Drops] 1 drops BOTH EYES TID PRN ml 07/21/21 [Rx] Ascorbic Acid [Vitamin C] 500 mg PO DAILY #30 tab 07/21/21 [Rx] Cholecalciferol [Vitamin D3 (25 Mcg = 1000 Iu)] 25 mcg PO DAILY #30 tablet 07/21/21 [Rx] Dexamethasone [Decadron] 6 mg PO DAILY #5 tablet 07/21/21 [Rx] Sodium Chloride 0.65% Nasal [Deep Sea (Saline)] 2 spray NASAL QID PRN ml 07/21/21 [Rx] Zinc Sulfate [Orazinc] 220 mg PO DAILY #30 cap 07/21/21 [Rx] Follow up Appointment(s)/Referral(s): Lewis Thornton DO [Doctor of Osteopathic Medicine] - 2 Weeks Care,Cat Garcia [NON-STAFF] - As Needed Taco Anguiano MD [Primary Care Provider] - 3 Days Ambulatory/Diagnostic Orders: Complete Blood Count w/diff [LAB.AMB] Time Frame: 2 Days, Location: None Selected Activity/Diet/Wound Care/Special Instructions: Patient will discharge home on home oxygen Discharge Disposition: HOME WITH HOME HEALTH SERVICES
[2021-07-21 14:29] VITALS: BP 106/68; PULSE 73; TEMP 97.9
--- NOTE | 2021-07-21 15:15 | P.PN ---
Subjective Progress Note Date: 07/21/21 Principal diagnosis: Dyspnea, cough, hypoxia 56-year-old female who presents to the emergency department on July 17, complaining of cough, shortness of breath, and fever. The patient apparently tested positive on July 09 for coronavirus. She's been symptomatically since that time and may be a bit before that. Her symptoms included primarily fever, chills, cough, shortness of breath, general weakness, and myalgias. She is on vaccinated. The patient's currently in the emergency room, room 15. She's on 4 L nasal cannula. She's not receiving any IV fluids. She apparently is no significant past medical history. She does not smoke cigarettes. Apparently her family doctor provided her with a Medrol Dosepak and a Z-Brian. That did not help. Chest x-ray shows diffuse bilateral infiltrates. White count 7.6, hemoglobin 11.4, hematocrit 33.2, platelet count 204,000. D-dimer was normal at 0.29. Sodium 129, potassium 3.9, chlorides 96, CO2 23, anion gap normal, BUN and creatinine normal. LDH 1003. C-reactive protein 7.8. Coronavirus testing here was positive. Chest x-ray shows bilateral mostly lower lobe infiltrates. The patient is seen today 07/18/2021 in follow-up on the regular medical floor. She is currently sitting up in bed. Awake and alert in no acute distress. She still has some shortness of breath with exertion. Some cough and congestion. She is maintaining O2 saturations in the 90s on 4 L/m per nasal cannula. A bit better today compared to yesterday. Continuing to work with the incentive spirometer. She had previously received monoclonal antibody therapy. She is currently on Lovenox, Decadron, vitamin supplements. CAT scan of the chest revealed scattered peripheral groundglass opacities consistent with COVID-19 pneumonia. White count 8.1. Hemoglobin 12.3. Platelet count 266. Leukocyte 0.81. Sodium 136. Potassium 4.7. Creatinine 0.48. Glucose 176. AST 57. ALT 62. LDH 962. C-reactive protein 6.7. Pro-calcitonin 0.03. She is continued on Decadron, Lovenox, vitamin supplements. On 07/19/2001 patient seen in follow-up on medical surgical floor, she is awake and alert, in no acute distress, she is currently on 4 L of oxygen and pulse ox was 90%, lung sounds reveal minimal crackles, overall patient states she is feeling better, she has received monoclonal antibodies in the emergency department. However she was not a candidate for Remdesivir due to the length of symptoms. She has a mild cough, no complaints of chest discomfort, fever or chills overnight, hemodynamically stable. CT chest without on 07/17/2021 showed findings consistent with atypical pneumonia COVID-19 pneumonia with scattered peripheral groundglass opacities throughout the lungs with more consolidative changes in the inferior aspect of the lower lobes. Patient remains on Decadron 6 mg daily, Lovenox, she is on IV fluids at 75 ML per hour and COVID-19 multivitamins. On 07/20/2021 patient seen in follow-up on medical surgical floor, FiO2 is down to 2 L, earlier today she was satting 92% on 2 L. Doing well, no acute events overnight, no fever or chills, patient continues on Decadron 6 mg daily, she is on prophylactic Lovenox, she is on multivitamins. She is up in chair, in no acute distress, she is tolerating oral intake. Today's labs have been reviewed, her d-dimer is normal at 0.47, inflammatory markers are improving, and LDH is down to 353, and CRP is 1.4. Pro-calcitonin level was negative 2. No acute events overnight, continue weaning FiO2 On 07/21/2021 patient seen in follow-up. Patient is awake and alert, in no acute distress, she is currently on room air pulse ox is 90-92%, she will be assessed for home oxygen with ambulation as well, breathing very comfortably, she does get short of breath with exertion, no complaints of chest discomfort, mild cough, improving, no fever or chills overnight, vital signs have been stable, she has been ambulating in the room, she has had no acute events. Patient has been treated with Decadron 6 blood gram daily, prophylactic anticoagulation in the form of Lovenox, COVID-19 vitamins, IV hydration, she was not a candidate for Remdesivir due to length of symptoms. She has improving. Yesterday's labs showed improving inflammatory markers, her d-dimer remained within normal limits. Pro-calcitonin levels were negative 2 at 0.04, and 0.03. Objective - Vital Signs Vital signs: Vital Signs Temp 97.9 F 07/21/21 14:00 Pulse 73 07/21/21 14:00 Resp 16 07/21/21 14:00 BP 106/68 07/21/21 14:00 Pulse Ox 92 L 07/21/21 14:00 Intake & Output 07/20/21 07/21/21 07/21/21 18:59 06:59 18:59 Other: Voiding Method Toilet Bedside Commode # Voids 4 1 - Exam GENERAL EXAM: Alert, pleasant, 48-year-old white female, on room air with a pulse ox of 92% comfortable in no apparent distress. HEAD: Normocephalic/atraumatic. EYES: Normal reaction of pupils, equal size. Conjunctiva pink, sclera white. NOSE: Clear with pink turbinates. THROAT: No erythema or exudates. NECK: No masses, no JVD, no thyroid enlargement, no adenopathy. CHEST: No chest wall deformity. Symmetrical expansion. LUNGS: Equal air entry with bilateral crackles CVS: Regular rate and rhythm, normal S1 and S2, no gallops, no murmurs, no rubs ABDOMEN: Soft, nontender. No hepatosplenomegaly, normal bowel sounds, no guarding or rigidity. EXTREMITIES: No clubbing, no edema, no cyanosis, 2+ pulses and upper and lower extremities. MUSCULOSKELETAL: Muscle strength and tone normal. SPINE: No scoliosis or deformity SKIN: No rashes CENTRAL NERVOUS SYSTEM: Alert and oriented -3. No focal deficits, tone is normal in all 4 extremities. PSYCHIATRIC: Alert and oriented -3. Appropriate affect. Intact judgment and insight. - Labs CBC & Chem 7: 07/19/21 05:44 07/19/21 05:44 Labs: Abnormal Lab Results - Last 24 Hours (Table) 07/20/21 07/20/21 07/21/21 Range/Units 16:51 20:24 11:33 POC Glucose (mg/dL) 144 H 179 H 124 H (75-99) mg/dL Assessment and Plan Plan: Assessment: #1. Acute hypoxic respiratory failure related to acute COVID-19 pneumonia. Non-vaccinated adult. Status post monoclonal antibody infusion prior to admission, outside the window for Remdesivir due to length of symptoms. She is down to 2 L of oxygen #2. Hyponatremia likely related to dehydration, improved with IV hydration #3. Elevated inflammatory markers related to the above, improving #4. History of left benign breast lumpectomy #5. Degenerative joint disease #6. GERD Plan: Obtain home oxygen assessment with ambulation At rest patient is maintaining O2 saturations at 90-92% Breathing comfortably, she is tolerating ambulation in the room Vital signs have been stable, no fever or chills No acute events overnight Inflammatory markers are improving, d-dimer remained within normal limits She stable for discharge home today She can complete outpatient course of oral Decadron for a total of 10 days, she can continue on COVID-19 vitamins Outpatient follow-up with Dr. Thornton in the office in 2 weeks Patient is instructed to come back for reevaluation with any worsening symptoms I performed a history & physical examination of the patient and discussed their management with my nurse practitioner, Jalyn Ceja. I reviewed the nurse practitioner's note and agree with the documented findings and plan of care. Lung sounds are positive for diminished breath sounds throughout the lung rosado. The findings and the impression was discussed with the patient. I attest to the documentation by the nurse practitioner. Time with Patient: Less than 30
== END 2021-07-21 16:10 | disposition home health service (06) | DRG 177 ==
LOC: EC 00:06 → 4SSUR 01:50
PROVIDERS: ADMIT Internal Medicine; ATTEND Internal Medicine
PROC: 3E0333Z Introduction of Anti-inflammatory into Peripheral Vein, Percutaneous Approach (ICD-10-PCS; principal; 2021-07-17)
DX: U07.1 COVID-19 (principal); J12.82 Pneumonia due to coronavirus disease 2019; J96.01 Acute respiratory failure with hypoxia; E87.1 Hypo-osmolality and hyponatremia; E66.9 Obesity, unspecified; Z68.31 Body mass index [BMI] 31.0-31.9, adult; E86.0 Dehydration; F40.240 Claustrophobia; K21.9 Gastro-esophageal reflux disease without esophagitis; M19.041 Primary osteoarthritis, right hand; M19.042 Primary osteoarthritis, left hand; Z80.8 Family history of malignant neoplasm of other organs or systems; Z82.49 Family history of ischemic heart disease and other diseases of the circulatory system; Z87.440 Personal history of urinary (tract) infections; Z88.2 Allergy status to sulfonamides
CPT/HCPCS: 36415; 71045; 71250; 80048; 80053; 81001; 82728; 83605; 83615; 83735; 84145; 85025; 85379; 85610; 85730; 86140; 87635; 93005; 94640; 94760; 99285

== ENCOUNTER → 2022-03-19 | Outpatient (CLI) | payer BC ==
[2022-03-19 11:13] LABS: C Reactive Protein 0.3 mg/dL (0.00-0.80); T4, Free (Free Thyroxine) 0.91 ng/dL (0.800-1.800)
== END | disposition home or self-care (01) ==
LOC: LABWHC1 07:30
PROVIDERS: ATTEND Family Medicine
DX: E07.9 Disorder of thyroid, unspecified (principal); R79.82 Elevated C-reactive protein (CRP)
CPT/HCPCS: 36415; 84439; 84443; 84481; 86140